=== PATIENT | female | born 1940 | race Asian ===

== ENCOUNTER 2017-06-23 05:15 | Inpatient (IN) | payer OTHER ==
[2017-06-22 20:00] VITALS: BP 125/68
[~2017-06-23] VITALS: Ht 157.5 cm; Wt 62.6 kg
[2017-06-23] VITALS (10 sets, daily range): BP systolic 105–125; BP diastolic 61–68
[2017-06-23] MEDS ORDERED: ACETAMINOPHEN 325 MG TABLET ONE (06:27)
[2017-06-23] MEDS ORDERED: oxyCODONE HCL SR 10MG TAB.SR.12H PO ONE (06:27)
[2017-06-23] MEDS ORDERED: CEFAZOLIN SODIUM/DEXTROSE,ISO 100 ML IV ONE (06:27)
[2017-06-23] MEDS ORDERED: CELECOXIB 100 MG CAPSULE ONE (06:27)
[2017-06-23] MEDS ORDERED: BACITRACIN 50000 UNITS/VIAL ONE (06:56)
[2017-06-23] MEDS ORDERED: ANESTHESIA TRAY IN PYXIS 1 EA TRAY MC ONE (06:56)
[2017-06-23] MEDS ORDERED: BUPIVACAINE 0.5 % PF 150 MG/30 ML VIAL ONE (06:56)
[2017-06-23] MEDS ORDERED: KETOROLAC TROMETHAMINE INJ 30 MG/ML VIAL ONE (06:56)
[2017-06-23] MEDS ORDERED: FENTANYL PF 100MCG/2ML AMPUL ONE (07:19)
[2017-06-23] MEDS ORDERED: TRANEXAMIC ACID 3,000 MG in SODIUM CHLORIDE IRRIG SOLUTION 70 ML IR ONE (08:30)
[2017-06-23] MEDS ORDERED: ONDANSETRON HCL/PF 4 MG/2 ML VIAL IVP PRN ×2 (09:30→12:30)
[2017-06-23] MEDS ORDERED: HYDROCODONE/APAP 5/325MG 1 EACH TABLET PO PRN ×3 (09:30→12:30)
[2017-06-23] MEDS ORDERED: DOCUSATE SODIUM 250 MG CAPSULE PO PRN (09:30)
[2017-06-23] MEDS ORDERED: SENNOSIDES 8.6 MG TABLET PO PRN (09:30)
[2017-06-23] MEDS ORDERED: BISACODYL SUPP (10 MG) 10 MG/SUPP.RECT SUPP.RECT RC PRN (09:30)
[2017-06-23] MEDS ORDERED: ACETAMINOPHEN 325 MG TABLET PO PRN ×2 (09:30→12:30)
[2017-06-23] MEDS ORDERED: ZOLPIDEM TARTRATE 5 MG TABLET PO PRN ×2 (09:30→12:30)
[2017-06-23] MEDS ORDERED: ONDANSETRON HCL/PF 4 MG/2 ML VIAL ONE (10:10)
[2017-06-23] MEDS: IV D5/0.45 NACL 1,000 ML IV PRN (11:49)
[2017-06-23] MEDS ORDERED: MAG HYDROX/AL HYDROX/SIMETH 30 ML UDC PO PRN (12:30)
[2017-06-23] MEDS ORDERED: Z GUARD REMEDY 2 OZ OINT TP PRN (12:30)
[2017-06-23] MEDS ORDERED: MAGNESIUM HYDROXIDE 30 ML UDC PO PRN (12:30)
[2017-06-23] MEDS: ANCEF 1 GM/50 ML D5W IV SCH ×4 (14:00→21:49)
[2017-06-23] MEDS: ASPIRIN 325 MG TABLET PO SCH (21:49)
[2017-06-24] MEDS ORDERED: MAGNESIUM HYDROXIDE 30 ML UDC PO PRN
[2017-06-24] MEDS ORDERED: HYDROCODONE/APAP 5/325MG 1 EACH TABLET PO PRN
[2017-06-24] MEDS ORDERED: HYDROMORPHONE 1 MG/1 ML DISP.SYRIN IV PRN
[2017-06-24] MEDS ORDERED: AMLO10TA2 PO (05:34)
[2017-06-24] MEDS ORDERED: ALLO100T PO (05:34)
[2017-06-24] MEDS ORDERED: HYDR25TA4 PO (05:34)
[2017-06-24 06:40] LABS: BASOPHILS % (AUTO) 0.4 % (0.0-2.0); EOSINOPHILS # (AUTO) 0.1 /CMM (0.0-0.7); EOSINOPHILS % (AUTO) 1.5 % (0.0-6.0); HEMATOCRIT 31 % (33-45); HEMOGLOBIN 10.6 g/dL (11.5-14.8); LYMPHOCYTES # (AUTO) 1.7 /CMM (0.8-4.8); LYMPHOCYTES % (AUTO) 20.9 % (20.0-44.0); MEAN CORPUSCULAR HEMOGLOBIN 31 PG (26.0-33.0); MEAN CORPUSCULAR HGB CONC 34 g/dl (31.0-36.0); MEAN CORPUSCULAR VOLUME 90 fL (82-100); MONOCYTES # (AUTO) 0.9 /CMM (0.1-1.30); MONOCYTES % (AUTO) 11.8 % (2.0-12.0); NEUTROPHILS # (AUTO) 5.2 /CMM (1.8-8.9); NEUTROPHILS % (AUTO) 65.4 % (43.0-81.0); PLATELET COUNT (AUTO) 201 /CMM (150-450); RDW COEFFICIENT OF VARIATION 13.8 (11.5-15.0); RED BLOOD CELL COUNT(AUTO) 3.45 MIL/uL (4.0-5.2)
[2017-06-24 06:45] LABS: CHOLESTEROL 159 mg/dL (<200); HDL CHOLESTEROL 58 mg/dL (40-60); LDL 98 mg/dL (0-99); TRIGLYCERIDES 55 mg/dL (30-150)
[2017-06-24 06:52] LABS: CALCIUM, SERUM 8.6 mg/dL (8.5-10.1); CARBON DIOXIDE 28 mmol/L (21-32); CHLORIDE 105 mmol/L (98-107); GLUCOSE 115 mg/dL (74-106); MAGNESIUM 1.6 mg/dL (1.8-2.4); PHOSPHORUS 3.3 mg/dL (2.5-4.9); SODIUM SERUM 141 mmol/L (136-145); UREA NITROGEN, BLOOD 9 mg/dL (7-18)
[2017-06-24 08:00] VITALS: BP 128/63
[2017-06-24] MEDS: ASPIRIN 325 MG TABLET PO SCH ×2 (09:06→16:52)
[2017-06-24] MEDS: PANTOPRAZOLE 40 MG TABLET.DR PO SCH (09:06)
[2017-06-24] MEDS: DOCUSATE SODIUM 100 MG CAPSULE PO SCH ×2 (09:06→16:52)
[2017-06-24] MEDS: HYDROCODONE/APAP 10/325MG 1 EA TABLET PO PRN ×2 (09:07→16:54)
[2017-06-24] MEDS: Magnesium 1GM/D5W 100ML PREMIX 100 ML IV SCH ×2 (11:04→12:18)
[2017-06-24] MEDS: POTASSIUM CHLORIDE 20 MEQ TAB.PRT.SR PO SCH ×3 (11:05→16:52)
[2017-06-24 16:00] VITALS: BP 131/80
[2017-06-24 20:00] VITALS: BP 109/62
[2017-06-25 06:35] LABS: BASOPHILS % (AUTO) 0.2 % (0.0-2.0); EOSINOPHILS # (AUTO) 0.2 /CMM (0.0-0.7); EOSINOPHILS % (AUTO) 2.1 % (0.0-6.0); HEMATOCRIT 31 % (33-45); HEMOGLOBIN 10.5 g/dL (11.5-14.8); LYMPHOCYTES # (AUTO) 1.7 /CMM (0.8-4.8); LYMPHOCYTES % (AUTO) 17.4 % (20.0-44.0); MEAN CORPUSCULAR HEMOGLOBIN 31 PG (26.0-33.0); MEAN CORPUSCULAR HGB CONC 34 g/dl (31.0-36.0); MEAN CORPUSCULAR VOLUME 90 fL (82-100); MONOCYTES % (AUTO) 10.4 % (2.0-12.0); NEUTROPHILS # (AUTO) 6.7 /CMM (1.8-8.9); NEUTROPHILS % (AUTO) 69.9 % (43.0-81.0); PLATELET COUNT (AUTO) 182 /CMM (150-450); RDW COEFFICIENT OF VARIATION 14.1 (11.5-15.0); RED BLOOD CELL COUNT(AUTO) 3.42 MIL/uL (4.0-5.2); WHITE BLOOD COUNT (AUTO) 9.6 K/uL (4.3-11.0)
[2017-06-25 07:23] LABS: CALCIUM, SERUM 8.7 mg/dL (8.5-10.1); CARBON DIOXIDE 25 mmol/L (21-32); CHLORIDE 104 mmol/L (98-107); CREATININE 1.1 mg/dL (0.6-1.3); GLUCOSE 115 mg/dL (74-106); MAGNESIUM 1.9 mg/dL (1.8-2.4); POTASSIUM 3.6 mmol/L (3.5-5.1); SODIUM SERUM 139 mmol/L (136-145); UREA NITROGEN, BLOOD 10 mg/dL (7-18)
[2017-06-25 08:00] VITALS: BP 116/65
[2017-06-25] MEDS: HYDROCODONE/APAP 10/325MG 1 EA TABLET PO PRN ×2 (08:56→17:33)
[2017-06-25] MEDS: DOCUSATE SODIUM 100 MG CAPSULE PO SCH ×2 (08:56→17:33)
[2017-06-25] MEDS: PANTOPRAZOLE 40 MG TABLET.DR PO SCH (08:56)
[2017-06-25] MEDS: ASPIRIN 325 MG TABLET PO SCH ×2 (08:56→17:33)
[2017-06-25 16:00] VITALS: BP 118/70
[2017-06-25 20:00] VITALS: BP 123/59
[2017-06-25 20:48] VITALS: BP 123/59
[2017-06-25] MEDS: IV D5/0.45 NACL 1,000 ML IV PRN (21:31)
[2017-06-26 06:46] LABS: BASOPHILS % (AUTO) 0.3 % (0.0-2.0); EOSINOPHILS # (AUTO) 0.3 /CMM (0.0-0.7); EOSINOPHILS % (AUTO) 3.3 % (0.0-6.0); HEMATOCRIT 28 % (33-45); HEMOGLOBIN 9.6 g/dL (11.5-14.8); LYMPHOCYTES # (AUTO) 1.3 /CMM (0.8-4.8); LYMPHOCYTES % (AUTO) 12.6 % (20.0-44.0); MEAN CORPUSCULAR HEMOGLOBIN 31 PG (26.0-33.0); MEAN CORPUSCULAR HGB CONC 35 g/dl (31.0-36.0); MEAN CORPUSCULAR VOLUME 89 fL (82-100); MONOCYTES # (AUTO) 0.9 /CMM (0.1-1.30); MONOCYTES % (AUTO) 8.8 % (2.0-12.0); NEUTROPHILS # (AUTO) 7.6 /CMM (1.8-8.9); PLATELET COUNT (AUTO) 174 /CMM (150-450); RDW COEFFICIENT OF VARIATION 14.1 (11.5-15.0); RED BLOOD CELL COUNT(AUTO) 3.09 MIL/uL (4.0-5.2); WHITE BLOOD COUNT (AUTO) 10.1 K/uL (4.3-11.0)
[2017-06-26 06:57] LABS: CALCIUM, SERUM 8.4 mg/dL (8.5-10.1); CARBON DIOXIDE 27 mmol/L (21-32); CHLORIDE 103 mmol/L (98-107); CREATININE 1.1 mg/dL (0.6-1.3); GLUCOSE 124 mg/dL (74-106); POTASSIUM 3.5 mmol/L (3.5-5.1); SODIUM SERUM 137 mmol/L (136-145); UREA NITROGEN, BLOOD 12 mg/dL (7-18)
[2017-06-26 08:00] VITALS: BP 130/66
[2017-06-26] MEDS: HYDROCODONE/APAP 10/325MG 1 EA TABLET PO PRN (09:08)
[2017-06-26] MEDS: ASPIRIN 325 MG TABLET PO SCH ×2 (09:09→16:59)
[2017-06-26] MEDS: DOCUSATE SODIUM 100 MG CAPSULE PO SCH ×2 (09:09→16:59)
[2017-06-26] MEDS: PANTOPRAZOLE 40 MG TABLET.DR PO SCH (09:09)
[2017-06-26 10:00] VITALS: BP 130/66
[2017-06-26] MEDS ORDERED: HYDR-3326 PO (11:30)
[2017-06-26] MEDS ORDERED: ASPI-992 PO (11:30)
[2017-06-26 16:00] VITALS: BP 129/88
[2017-06-26 20:00] VITALS: BP 128/80
[2017-06-27 04:00] VITALS: BP 116/59
[2017-06-27] MEDS: IV D5/0.45 NACL 1,000 ML IV PRN (04:47)
[2017-06-27 06:38] LABS: BASOPHILS % (AUTO) 0.4 % (0.0-2.0); EOSINOPHILS # (AUTO) 0.4 /CMM (0.0-0.7); EOSINOPHILS % (AUTO) 5.2 % (0.0-6.0); HEMATOCRIT 27 % (33-45); HEMOGLOBIN 9.2 g/dL (11.5-14.8); LYMPHOCYTES # (AUTO) 1.6 /CMM (0.8-4.8); LYMPHOCYTES % (AUTO) 20.1 % (20.0-44.0); MEAN CORPUSCULAR HEMOGLOBIN 31 PG (26.0-33.0); MEAN CORPUSCULAR HGB CONC 35 g/dl (31.0-36.0); MEAN CORPUSCULAR VOLUME 90 fL (82-100); MONOCYTES # (AUTO) 0.8 /CMM (0.1-1.30); MONOCYTES % (AUTO) 10.2 % (2.0-12.0); NEUTROPHILS % (AUTO) 64.1 % (43.0-81.0); PLATELET COUNT (AUTO) 188 /CMM (150-450); RED BLOOD CELL COUNT(AUTO) 2.95 MIL/uL (4.0-5.2); WHITE BLOOD COUNT (AUTO) 7.8 K/uL (4.3-11.0)
[2017-06-27 06:56] LABS: CALCIUM, SERUM 8.5 mg/dL (8.5-10.1); CARBON DIOXIDE 27 mmol/L (21-32); CHLORIDE 104 mmol/L (98-107); CREATININE 1.1 mg/dL (0.6-1.3); GLUCOSE 110 mg/dL (74-106); POTASSIUM 3.6 mmol/L (3.5-5.1); SODIUM SERUM 139 mmol/L (136-145); UREA NITROGEN, BLOOD 15 mg/dL (7-18)
[2017-06-27 08:00] VITALS: BP 119/64
[2017-06-27] MEDS: PANTOPRAZOLE 40 MG TABLET.DR PO SCH (09:26)
[2017-06-27] MEDS: DOCUSATE SODIUM 100 MG CAPSULE PO SCH ×2 (09:26→17:28)
[2017-06-27] MEDS: ASPIRIN 325 MG TABLET PO SCH ×2 (09:26→17:28)
[2017-06-27 16:00] VITALS: BP 118/70
[2017-06-27] MEDS: HYDROCODONE/APAP 10/325MG 1 EA TABLET PO PRN (17:37)
[2017-06-27 20:00] VITALS: BP 111/59
[2017-06-28 08:00] VITALS: BP 128/64
[2017-06-28] MEDS: ASPIRIN 325 MG TABLET PO SCH ×2 (09:05→17:18)
[2017-06-28] MEDS: PANTOPRAZOLE 40 MG TABLET.DR PO SCH (09:05)
[2017-06-28] MEDS: DOCUSATE SODIUM 100 MG CAPSULE PO SCH ×2 (09:05→17:18)
[2017-06-28] MEDS: HYDROCODONE/APAP 10/325MG 1 EA TABLET PO PRN (09:11)
[2017-06-28 15:55] VITALS: BP 116/62
[2017-06-28 20:00] VITALS: BP 142/69
[2017-06-29 04:00] VITALS: BP 122/71
[2017-06-29 07:52] VITALS: BP 110/69
[2017-06-29] MEDS: DOCUSATE SODIUM 100 MG CAPSULE PO SCH (08:05)
[2017-06-29] MEDS: PANTOPRAZOLE 40 MG TABLET.DR PO SCH (08:05)
[2017-06-29] MEDS: ASPIRIN 325 MG TABLET PO SCH (08:05)
[2017-06-29] MEDS: HYDROCODONE/APAP 10/325MG 1 EA TABLET PO PRN (08:06)
[2017-06-29 08:18] VITALS: BP 110/69
[2017-06-29 16:05] VITALS: BP 129/66
== END 2017-06-29 17:16 | DRG 302 ==
LOC: DS 05:15 → MED 11:02 → OBSVTOIN 11:02 → MED 11:41 → MEDSG2 19:10
PROVIDERS: ADMIT Family Medicine; ATTEND Family Medicine
PROC: 0SRD0J9 Replacement of Left Knee Joint with Synthetic Substitute, Cemented, Open Approach (ICD-10-PCS; principal; 2017-06-23 07:30)
DX: M17.12 Unilateral primary osteoarthritis, left knee (principal); E83.42 Hypomagnesemia; I10 Essential (primary) hypertension; M10.9 Gout, unspecified; E87.6 Hypokalemia
CPT/HCPCS: 36415; 80048-TC; 80061-TC; 82962-TC; 83735-TC; 84100-TC; 85025-TC; 86850-TC; 86921-TC; 87081-TC; 97110-TC; 97116-TC; 97530-TC; 97760-TC; A4217; A6402; C1713; J0690; J1170; J1885; J2370; J2405; J2704; J3010; J3475; J3490; J7042; J7060; L1830; Z7610